=== PATIENT | female | born 1980 | race Caucasian/White ===

== ENCOUNTER 2019-05-03 13:27 | Emergency (ER) | payer MEDICAID, OTHER ==
[~2019-05-03] VITALS: Ht 165.1 cm; Wt 77.0 kg
[~2019-05-03 13:27] MED LIST: HYDR-3965 PO; HYDR-4353 PO; NORG1TAB90 PO; OMEP-84 PO
[2019-05-03 14:02] VITALS: BP 131/65
[2019-05-03] MEDS ORDERED: GABA-530 PO (14:02)
== END 2019-05-03 14:31 | disposition home or self-care (01) ==
LOC: ER 13:27
DX: M79.642 Pain in left hand (principal); M79.641 Pain in right hand; R29.818 Other symptoms and signs involving the nervous system; R20.0 Anesthesia of skin; G89.29 Other chronic pain; F10.99 Alcohol use, unspecified with unspecified alcohol-induced disorder; Z98.890 Other specified postprocedural states; Z79.899 Other long term (current) drug therapy; Y90.9 Presence of alcohol in blood, level not specified
CPT/HCPCS: 29125; 99283